=== PATIENT | female | born 1985 | race Two or more races ===

== ENCOUNTER 2018-03-03 19:29 | Emergency (ER) | payer BC ==
[~2018-03-03] VITALS: Ht 157.5 cm; Wt 60.0 kg
[~2018-03-03 19:29] MED LIST: INHALER; PREN-1 PO
[2018-03-03] MEDS ORDERED: ONDANSETRON 2MG/ML, 2ML ONE (19:47)
[2018-03-03] MEDS ORDERED: MORPHINE SULFATE 4 MG/ML, 1ML ONE ×2 (19:47→21:08)
[2018-03-03] MEDS ORDERED: ONDANSETRON 2MG/ML, 2ML IVPush ONE (20:00)
[2018-03-03] MEDS ORDERED: SODIUM CHLORIDE FLUSH 10ML SYR IVF ONE (20:00)
[2018-03-03] MEDS: MORPHINE SULFATE 4 MG/ML, 1ML IVPush PRN ×2 (20:03→21:13)
[2018-03-03 20:05] VITALS: BP 109/62
== END 2018-03-03 21:40 | disposition home or self-care (01) ==
LOC: ED 21:00
DX: S83.91XA Sprain of unspecified site of right knee, initial encounter (principal); J45.909 Unspecified asthma, uncomplicated; Z98.51 Tubal ligation status; X50.1XXA Overexertion from prolonged static or awkward postures, initial encounter; Y93.66 Activity, soccer; Y92.321 Football field as the place of occurrence of the external cause; Y99.8 Other external cause status
CPT/HCPCS: 29505; 73564; 96374; 96375; 96376; 99284; J2405

== ENCOUNTER 2019-01-31 00:19 | Emergency (ER) | payer BC ==
[~2019-01-31] VITALS: Ht 154.9 cm; Wt 59.0 kg
--- NOTE | 2019-01-31 00:46 | NUR ---
PT PLACED IN [facility]OSP[facility] GOWN. PT ON CARDIAC AND VITALS MONITORS. BILAT BEDRAILS UP. CALL LIGHT WTIHIN REACH. LAB IN TO DRAW BLOOD.
[2019-01-31 01:07] LABS: ALBUMIN 3.7 g/dL (3.4-5.0); ANION GAP 8 mmol/L (5-15); CHLORIDE 110 mmol/L (98-107); CREATININE 0.55 mg/dL (0.55-1.02)
[2019-01-31 01:08] LABS: BASOPHILS # (AUTO) 0.03 x10^3/uL (0-0.1); BASOPHILS % (AUTO) 1 % (0-1); EOSINOPHILS # (AUTO) 0.12 x10^3/uL (0-0.4); EOSINOPHILS % (AUTO) 2 % (1-7); LYMPHOCYTES % (AUTO) 33 % (22-44); MD SCAN; MEAN CORPUSCULAR HEMOGLOBIN 22.4 pg (27.0-34.8); MEAN CORPUSCULAR HGB CONC 31.1 g/dL (32.4-35.8); MEAN CORPUSCULAR VOLUME 72.2 fL (80-100); MEAN PLATELET VOLUME 8.9 fL (7.4-10.4); MONOCYTES # (AUTO) 0.55 x10^3/uL (0.2-0.8); MONOCYTES % (AUTO) 9 % (2-9); NEUTROPHILS # (AUTO) 3.19 x10^3/uL (1.8-6.8); NEUTROPHILS % (AUTO) 55 % (42-75); PLATELET COUNT 317 x10^3/uL (130-400); RED BLOOD COUNT 3.91 x10^6/uL (3.82-5.3); RED CELL DISTRIBUTION WIDTH 18.7 % (9.6-15.2)
[2019-01-31 02:04] VITALS: BP 116/71
== END 2019-01-31 02:06 | disposition home or self-care (01) ==
LOC: ED 00:35
DX: R07.89 Other chest pain (principal); D62 Acute posthemorrhagic anemia; J45.909 Unspecified asthma, uncomplicated; Z98.51 Tubal ligation status
CPT/HCPCS: 36415; 71046; 80048; 82040; 84439; 84443; 85025; 93005; 99284